=== PATIENT | female | born 1945 | race Caucasian/White ===

== ENCOUNTER 2021-12-28 20:31 | Emergency (ER) | payer OTHER ==
--- NOTE | 2021-12-28 21:00 | NUR ---
PT CALLED FOR TRIAGE THREE TIMES, NO ANSWER
== END 2021-12-28 21:00 | disposition left against medical advice (07) ==
LOC: SED 20:31
DX: M25.569 Pain in unspecified knee (principal); Z53.21 Procedure and treatment not carried out due to patient leaving prior to being seen by health care provider

== ENCOUNTER 2021-12-29 13:39 | Emergency (ER) | payer OTHER ==
[~2021-12-29] VITALS: Ht 152.4 cm; Wt 55.8 kg
--- NOTE | 2021-12-29 14:08 | NUR ---
pt ambulated to bed 6
[2021-12-29 14:09] VITALS: BP_SYST 132
--- NOTE | 2021-12-29 14:09 | NUR ---
76yo f, known case of arthritis, with c/o increasing left knee pain and swelling x 5 days. pain 9/10. denies trauma or injury to area. takes naproxen for pain, last taken last night. in ed, vss. not in distress. clear breath sounds. no erythema or redness noted on left knee. ermd made aware of pt status.
--- NOTE | 2021-12-29 14:09 | NUR ---
Patient to ER bed 6 for evaluation. Side rails up. Report given to Maite TAMEZ.
--- NOTE | 2021-12-29 14:33 | NUR ---
ER at bedside examining patient.
[2021-12-29] MEDS ORDERED: KETOROLAC TROMETHAMINE 60 MG/2 ML VIAL IM ONE (14:45)
--- NOTE | 2021-12-29 16:00 | NUR ---
KAHLIL AT BEDSIDE
[2021-12-29 16:12] VITALS: BP_SYST 132
--- NOTE | 2021-12-29 16:12 | NUR ---
Patient given written and verbal discharge instructions and verbalizes understanding. ER MD discussed with patient the results and treatment provided. Patient in stable condition. ID arm band removed. IV catheter removed intact and dressing applied, no active bleeding. NO Rx given. Patient educated on pain management and to follow up with PMD. Pain Scale 2. Opportunity for questions provided and answered. Medication side effect fact sheet provided.
== END 2021-12-29 16:12 | disposition home or self-care (01) ==
LOC: SED 13:39
DX: M71.22 Synovial cyst of popliteal space [Baker], left knee (principal)
CPT/HCPCS: 93971; 96372; 99284; J1885